=== PATIENT | male | born 1945 | race Caucasian/White ===

== ENCOUNTER 2018-01-07 23:24 | Inpatient (IN) | payer OTHER ==
[~2018-01-07] VITALS: Ht 177.8 cm; Wt 75.0 kg
[2018-01-07 23:45] VITALS: Ht 177.8 cm; Wt 75.0 kg
[2018-01-08] VITALS (12 sets, daily range): BP systolic 151–203; BP diastolic 60–99
[2018-01-08 00:20] LABS: BASOPHIL % 0.3 % (0-2); PLATELET COUNT 152 x10^3mcL (130-400)
[2018-01-08 00:22] LABS: RED CELL DISTRIBUTION WIDTH 15.3 % (11.5-14.5)
[2018-01-08 00:34] LABS: ALBUMIN 4.3 g/dL (3.4-5.0); BILIRUBIN TOTAL 1.09 mg/dL (0.20-1.00); CALCIUM 10.9 mg/dL (8.5-10.1); CARBON DIOXIDE 33.2 mmol/L (21-32); POTASSIUM SERUM 4.8 mmol/L (3.5-5.1); TOTAL PROTEIN, SERUM 8.2 g/dL (6.4-8.2)
[2018-01-08 00:36] LABS: CREATININE SERUM 6.9 mg/dL (0.7-1.3)
[2018-01-08] MEDS ORDERED: ATENOLOL25 MG PO (01:26)
[2018-01-08] MEDS ORDERED: FOL1 PO (01:26)
[2018-01-08] MEDS ORDERED: REN800 PO (01:26)
[2018-01-08] MEDS ORDERED: B COMPLEX & B121 TAB PO (01:26)
[2018-01-08] MEDS ORDERED: VENTOLIN H0.09 MG/A1 INH (01:27)
[2018-01-08] MEDS ORDERED: ARICEPT5 MG PO (01:27)
[2018-01-08] MEDS ORDERED: TRAZODONE50 M1 PO (01:27)
[2018-01-08 01:51] LABS: MAGNESIUM 2.6 mg/dL (1.8-2.4)
[2018-01-08 01:56] LABS: T3 TOTAL 0.64 ng/mL
[2018-01-08 02:01] LABS: FREE T4 1.96 ng/dL (0.76-1.46); FREE THYROXINE INDEX 4.3 ug/dL (1.4-4.5); T4(THYROXINE) 11.6 ug/dL (4.7-13.3)
[2018-01-08 06:29] LABS: CALCIUM 10.9 mg/dL (8.5-10.1); CARBON DIOXIDE 31.6 mmol/L (21-32); POTASSIUM SERUM 4.7 mmol/L (3.5-5.1)
[2018-01-08 06:40] LABS: BASOPHIL % 0.2 % (0-2)
[2018-01-08 07:05] LABS: CREATININE SERUM 6.9 mg/dL (0.7-1.3)
[2018-01-08 07:08] LABS: PLATELET COUNT 116 x10^3mcL (130-400); RED CELL DISTRIBUTION WIDTH 15.9 % (11.5-14.5)
[2018-01-09 05:38] VITALS: BP 102/54
[2018-01-09 06:52] VITALS: BP 130/70
[2018-01-09 07:10] LABS: CALCIUM 9.8 mg/dL (8.5-10.1); MAGNESIUM 2.1 mg/dL (1.8-2.4); PHOSPHOROUS 3.9 mg/dL (2.5-4.9); POTASSIUM SERUM 4.9 mmol/L (3.5-5.1)
[2018-01-09 07:13] LABS: BASOPHIL % 0.2 % (0-2); PLATELET COUNT 110 x10^3mcL (130-400)
[2018-01-09 07:29] LABS: CREATININE SERUM 5.3 mg/dL (0.7-1.3)
[2018-01-09 09:54] VITALS: BP 159/62
[2018-01-09 16:10] LABS: APPEARANCE FLUID CLEAR; COLOR FLUID PALE YELLOW; RBC FLUID 65.6 /cumm; SOURCE FLUID THORACENTESIS; WBC FLUID 0 /cumm
[2018-01-09 16:24] VITALS: BP 163/64
[2018-01-09 18:34] VITALS: BP 128/59
[2018-01-09 20:40] VITALS: BP 150/69
[2018-01-10] VITALS (13 sets, daily range): BP systolic 134–188; BP diastolic 51–83
[2018-01-10 18:24] LABS: APPEARANCE FLUID CLEAR; COLOR FLUID PALE YELLOW; RBC FLUID 113.3 /cumm; WBC FLUID 7.8 /cumm
[2018-01-10 18:25] LABS: SOURCE FLUID PLEURAL
[2018-01-11 06:17] VITALS: BP 127/50
[2018-01-11 06:48] LABS: BASOPHIL % 0.3 % (0-2)
[2018-01-11 07:16] LABS: CALCIUM 8.8 mg/dL (8.5-10.1); CARBON DIOXIDE 27.6 mmol/L (21-32); PHOSPHOROUS 3.8 mg/dL (2.5-4.9)
[2018-01-11 07:44] LABS: PLATELET COUNT 82 x10^3mcL (130-400); RED CELL DISTRIBUTION WIDTH 15.6 % (11.5-14.5)
[2018-01-11 09:06] VITALS: BP 111/44
[2018-01-11 12:43] VITALS: BP 126/88
[2018-01-11] MEDS ORDERED: AUGMENTIN1 TA1 PO ×2 (16:10→16:16)
[2018-01-11] MEDS ORDERED: LAC PO (16:11)
[2018-01-11 16:31] VITALS: BP 126/88
[2018-01-11 17:03] VITALS: BP 119/44
== END 2018-01-11 18:07 | disposition home or self-care (01) | DRG 137 ==
LOC: ED 23:24 → DU 01-08 00:45
PROVIDERS: Emergency Medicine; Family Medicine; Family Medicine Sports Medicine
PROC: 5A1D70Z Performance of Urinary Filtration, Intermittent, Less than 6 Hours Per Day (ICD-10-PCS; principal; 2018-01-08)
PROC: 0W9B3ZZ Drainage of Left Pleural Cavity, Percutaneous Approach (ICD-10-PCS; 2018-01-09)
PROC: 5A1D70Z Performance of Urinary Filtration, Intermittent, Less than 6 Hours Per Day (ICD-10-PCS; 2018-01-10)
PROC: 0W993ZZ Drainage of Right Pleural Cavity, Percutaneous Approach (ICD-10-PCS; 2018-01-10)
DX: J69.0 Pneumonitis due to inhalation of food and vomit (principal); N17.0 Acute kidney failure with tubular necrosis; I50.43 Acute on chronic combined systolic (congestive) and diastolic (congestive) heart failure; J90 Pleural effusion, not elsewhere classified; I13.2 Hypertensive heart and chronic kidney disease with heart failure and with stage 5 chronic kidney disease, or end stage renal disease; N18.6 End stage renal disease; E11.21 Type 2 diabetes mellitus with diabetic nephropathy; F03.90 Unspecified dementia, unspecified severity, without behavioral disturbance, psychotic disturbance, mood disturbance, and anxiety; F17.210 Nicotine dependence, cigarettes, uncomplicated; I16.0 Hypertensive urgency; D64.9 Anemia, unspecified; E83.52 Hypercalcemia; E02 Subclinical iodine-deficiency hypothyroidism; Z53.29 Procedure and treatment not carried out because of patient's decision for other reasons; E78.5 Hyperlipidemia, unspecified; E11.22 Type 2 diabetes mellitus with diabetic chronic kidney disease; E78.00 Pure hypercholesterolemia, unspecified; Z99.2 Dependence on renal dialysis; Z83.3 Family history of diabetes mellitus; Z56.0 Unemployment, unspecified
CPT/HCPCS: 32555; 82962; 83880; 84439; 97110-GP; 97116-GP; 97530-GP; C1729; J0360; J0456; J0696; J1644; J1956; J2001; J2060; J3490; J7030; J7050; J7620; Q0092

== ENCOUNTER 2019-06-12 01:06 | Inpatient (IN) | payer OTHER ==
[~2019-06-12] VITALS: Ht 170.2 cm; Wt 68.0 kg
[~2019-06-12 01:06] MED LIST: ARICEPT5 MG PO; ATENOLOL25 MG PO; AUGMENTIN1 TA1 PO; B COMPLEX & B121 TAB PO; FOL1 PO; LAC PO; REN800 PO; TRAZODONE50 M1 PO; VENTOLIN H0.09 MG/A1 INH
[2019-06-12 01:18] VITALS: Ht 170.2 cm; Wt 68.0 kg
[2019-06-12 02:26] LABS: BASOPHIL % 0.3 % (0-2); PLATELET COUNT 208 x10^3mcL (130-400); RED CELL DISTRIBUTION WIDTH 14.3 % (11.5-14.5)
[2019-06-12 02:43] LABS: ALKALINE PHOSPHATASE 70 U/L (46-116); ALT/SGPT 11 U/L (16-63); AST/SGOT 37 U/L (15-37); BILIRUBIN TOTAL 0.94 mg/dL (0.20-1.00); CALCIUM 9.4 mg/dL (8.5-10.1); CARBON DIOXIDE 34.5 mmol/L (21-32); CHLORIDE SERUM 93 mmol/L (98-107); GLUCOSE SERUM 165 mg/dL (74-106); POTASSIUM SERUM 4.1 mmol/L (3.5-5.1); SODIUM SERUM 134 mmol/L (136-145); TOTAL PROTEIN, SERUM 7.4 g/dL (6.4-8.2)
[2019-06-12 02:45] LABS: CHOLESTEROL 134 mg/dL (<200)
[2019-06-12 02:46] LABS: CREATININE SERUM 6.4 mg/dL (0.7-1.3)
[2019-06-12 06:26] LABS: T3 TOTAL 0.79 ng/mL
[2019-06-12 07:07] LABS: FREE T4 1.74 ng/dL (0.76-1.46); FREE THYROXINE INDEX 3.8 ug/dL (1.4-4.5); T4(THYROXINE) 9.6 ug/dL (4.7-13.3)
[2019-06-12 08:14] VITALS: BP 110/44
[2019-06-12 08:41] LABS: MAGNESIUM 2.3 mg/dL (1.8-2.4); PHOSPHOROUS 5.3 mg/dL (2.5-4.9)
[2019-06-12 08:43] LABS: CHOLESTEROL/HDL RATIO 4.3
[2019-06-12 11:50] VITALS: BP 156/61
[2019-06-12 15:16] VITALS: BP 172/71
[2019-06-12 19:25] VITALS: BP 150/59
[2019-06-12 23:11] VITALS: BP 155/52
[2019-06-13 03:23] VITALS: BP 155/59
[2019-06-13 05:27] LABS: CALCIUM 9.4 mg/dL (8.5-10.1); CARBON DIOXIDE 28.2 mmol/L (21-32); CHLORIDE SERUM 97 mmol/L (98-107); GLUCOSE SERUM 188 mg/dL (74-106); POTASSIUM SERUM 3.6 mmol/L (3.5-5.1); SODIUM SERUM 137 mmol/L (136-145)
[2019-06-13 05:32] LABS: CREATININE SERUM 5.7 mg/dL (0.7-1.3)
[2019-06-13 05:41] LABS: PLATELET COUNT 167 x10^3mcL (130-400)
[2019-06-13 06:29] LABS: RED CELL DISTRIBUTION WIDTH 14.9 % (11.5-14.5)
[2019-06-13 06:32] LABS: BAND NEUTROPHIL 10 % (0-10); BASOPHIL 0 % (0-2); SEGMENTED NEUTROPHILS 89 % (37-75); rbc morphology (normal/abnorm) ABNORMAL (NORMAL)
[2019-06-13 06:35] LABS: PLATELET MORPHOLOGY PLATELETS DECREASED
[2019-06-13 22:56] VITALS: BP 61/44
== END 2019-06-14 02:45 | disposition expired | DRG 44 ==
LOC: ED 01:06 → IC 03:50 → IW 07:45 → IC 07:52 → DU 06-13 22:22
PROVIDERS: Emergency Medicine; ADMIT General Practice
PROC: 5A1D70Z Performance of Urinary Filtration, Intermittent, Less than 6 Hours Per Day (ICD-10-PCS; principal; 2019-06-12)
PROC: 0W9B3ZZ Drainage of Left Pleural Cavity, Percutaneous Approach (ICD-10-PCS; 2019-06-12)
DX: I60.9 Nontraumatic subarachnoid hemorrhage, unspecified (principal); I63.9 Cerebral infarction, unspecified; I21.4 Non-ST elevation (NSTEMI) myocardial infarction; J96.90 Respiratory failure, unspecified, unspecified whether with hypoxia or hypercapnia; J69.0 Pneumonitis due to inhalation of food and vomit; G93.40 Encephalopathy, unspecified; E11.21 Type 2 diabetes mellitus with diabetic nephropathy; N18.6 End stage renal disease; I46.9 Cardiac arrest, cause unspecified; G81.91 Hemiplegia, unspecified affecting right dominant side; E11.22 Type 2 diabetes mellitus with diabetic chronic kidney disease; I12.0 Hypertensive chronic kidney disease with stage 5 chronic kidney disease or end stage renal disease; E87.1 Hypo-osmolality and hyponatremia; I13.11 Hypertensive heart and chronic kidney disease without heart failure, with stage 5 chronic kidney disease, or end stage renal disease; I16.1 Hypertensive emergency; Z99.2 Dependence on renal dialysis; Z87.891 Personal history of nicotine dependence; Z83.3 Family history of diabetes mellitus; Z79.899 Other long term (current) drug therapy
CPT/HCPCS: 82962; 84439; 87804; C9113; G0378; G0480; J0360; J1953; J2270; J2405; J2543; J3370; J3490; J7030; J7040; Q0092; Q9967